=== PATIENT | female | born 1935 | race Caucasian/White ===

== ENCOUNTER 2017-12-05 19:03 | Emergency (ER) | payer MEDICARE ==
--- NOTE | 2017-12-05 20:42 | RAD ---
CHEST TWO VIEWS: History: Chest pain. Comparison: 06-01-16 FINDINGS: The lungs are clear. There is no pneumothorax or effusion. There is some mild pleural scarring over t he right lung apex. There are right upper quadrant surgical clips. Mild calcification of the aorta. IMPRESSION: No acute intrathoracic abnormality. POS: [facility]
== END 2017-12-05 22:48 | disposition home or self-care (01) ==
LOC: ERS 19:03
DX: Z04.1 Encounter for examination and observation following transport accident (principal); E11.9 Type 2 diabetes mellitus without complications; Z79.4 Long term (current) use of insulin; K21.9 Gastro-esophageal reflux disease without esophagitis; I10 Essential (primary) hypertension; Z85.3 Personal history of malignant neoplasm of breast; Z79.82 Long term (current) use of aspirin; Z79.899 Other long term (current) drug therapy; V43.62XA Car passenger injured in collision with other type car in traffic accident, initial encounter
CPT/HCPCS: 71046